=== PATIENT | female | born 1965 | race Caucasian/White ===

== ENCOUNTER 2022-07-16 12:28 | Emergency (ER) | payer SELFPAY ==
[2022-07-16 12:29] VITALS: BP 128/82; PULSE 98; RESP 18; TEMP 36.7; O2SAT 96; BMI 30.4
--- NOTE | 2022-07-16 12:36 | XRR_ITS ---
PROCEDURE INFORMATION: Exam: XR Left Humerus Exam date and time: 07/16/2022 12:59 PM Age: 57 years old Clinical indication: Injury or trauma; Fall; Blunt trauma (contusions or hematomas); Arm, upper; Left; Additional info: Fall/left arm pain TECHNIQUE: Imaging protocol: Radiologic exam of the Left humerus. Views: 2 or more views. COMPARISON: No relevant prior studies available. FINDINGS: Bones/joints: There is an oblique fracture near the mid shaft of the left humerus. There is anterior tilting and about 6 mm of medial displacement of the distal fragment. Soft tissues: Normal. XR/[place] [id number] IMPRESSION: Fracture near the mid shaft of the humerus.
--- NOTE | 2022-07-16 13:38 | ED_ITS ---
Documented by User: JADE Sandhu-Fernando 07/16/22 18:27 HPI - Extremity Problem General: Chief complaint: Extremity Injury, Upper Stated complaint: Left arm injury from fall Time Seen by Provider: 07/16/22 12:37 History of Present Illness: Patient is in today for left arm pain. She reports that they are renovating a house and yesterday she fell slipping on a tarp and fell into some furniture onto her left arm. She reports has been very painful since that time. She is new to the area and does not have a PCP. She went to a clinic today and they advised her to come to the ER. She reports if she is sitting still her pain is a 6 out of 10 but is much worse if she tries to move the arm. She reports good movement of her fingers and hand from the elbow down she can also shrug her shoulder but she reports that if she moves her arm away from her body it feels like it is dangling. Associated symptoms: Deny fever(s) Review of Systems Const: Denies: fever(s) or chills Musc: Reports: extremity pain (Left upper arm pain) [facility] PFSH: Social History Smoking and tobacco status: never smoked Physical Exam Const: COMMON NORMALS: no acute distress (Patient sitting calm but in obvious pain), patient oriented x3 and alert Resp: COMMON NORMALS: normal respiratory effort and No use of accessory muscles Extremity: NARRATIVE EXTREMITY EXAM: Patient has arm in a sling to her side. CSM within normal limits. Patient is able to move wrist and wiggle fingers with good strength. Radial and ulnar pul ses intact and strong. She is able to shrug her shoulders. Pain intensifies if she tries to move the arm away from her body. Neuro: COMMON NORMALS: patient oriented x3 SENSORIUM/ORIENTATION: Yes alert Course Reevaluation(s): Reevaluation #1: 1415?patient reports excellent affect after pain medication and nausea medication. Reevaluation #2: 1640?patient reports some pain in her arm again after going to CT scan she is also feeling very nauseated again. Hydrocodone and Zofran ordered Consultations: Consultation #1: Spoke with Dr. Blankenship?he recommends CT of the humerus without contrast. He would like to see the patient in office on Wednesday. He recommends a coaptation splint Vital Signs: Vital signs: Vital Signs Temperature 98.1 F 07/16/22 12:29 Pulse Rate 98 07/16/22 12:29 Respiratory Rate 18 07/16/22 17:55 Blood Pressure 128/82 07/16/22 12:29 Pulse Oximetry 96 07/16/22 12:29 Oxygen Delivery Me thod 07/16/22 12:29 MDM - Extremity (Nontraumatic) Medical Decision Making Patient is in today for left upper arm pain after falling and hitting her arm on furniture. This happened yesterday. She was seen at a clinic today and referred to the emergency department. X-ray shows a fracture near the midshaft of the humerus on the left side. Paged Dr. Blankenship who is on-call for orthopedics today. Spoke with Dr. Blankenship who recommends CT noncontrast of the humerus. Follow-up with him in office on Wednesday. Placed patient in a coaptation splint. Splint in good position. CSM within normal limits post splint. Patient was given fentanyl one-time dose during splinting procedure for acute pain. I consulted with Dr. Brewer to provide patient pain control on discharge. Percocet 5/325 1 tab every 4-6 hours as needed pain #30 no refills was given hard prescription per Dr. Brewer. Advised patient of follow-up with Dr. Blankenship. Advised her of conservative treatment at home. All questions answered to satisfaction. Patient is stable for discharge. Advised her to return to ER as needed for any new or worsening symptoms Lab Data Radiology Impressions Humerus X-Ray 07/16/22 12:36 IMPRESSION: Fracture near the mid shaft of the humerus. Humerus CT 07/16/22 15:12 IMPRESSION: Comminuted left humeral diaphyseal fracture. See discussion above. Discharge Plan Discharge Patient Disposition: Home Clinical Impression: Fracture of humerus Condition: Stable Prescriptions: No Action atorvastatin 10 mg tablet 10 mg PO DAILY oxycodone-acetaminophen [Percocet] 5-325 mg tablet 1 tab PO Q6H PRN (Reason: pain) 7 Days Qty: 28 0RF (DME) hummeral fracture brace See Rx Instructions .Route .MEDSUPPLY Qty: 1 0RF Rx Instructions: As directed meloxicam 15 mg tablet 15 mg PO DAILY Qty: 30 0RF Discharge Orders: Discharge ED (Routine); Ordered 07/16/22 Ordered By: Nati Hassan Discharge Diet: Usual diet Discharge Activity: Limit activity as instructed Patient Instructions: Fractures - Humerus, Splint Care (ED), Opioid Safety, Pain Management Activity Restrictions/Additional Instructions: Keep splint in place. Utilize pain medication as prescribed. Do not drive after taking pain medication. Follow-up with Dr. Blankenship on Wednesday. Return to the ER as needed for new or worsening symptoms. Coding Level of Care Code ED Telephone Service Representative for [facility] Fwd Exam Expanded Problem Focused Documented by User: Latrell Brewer MD 07/25/22 18:40 HPI - Extremity Problem General: Chief complaint: Extremity Injury, Upper Stated complaint: Left arm injury from fall Time Seen by Provider: 07/16/22 12:37 PFSH ED PFSH: Social History Smoking and tobacco status: never smoked Course Vital Signs: Vital signs: Vital Signs Temperature 98.1 F 07/16/22 12:29 Pulse Rate 98 07/16/22 12:29 Respiratory Rate 18 07/16/22 17:55 Blood Pressure 128/82 07/16/22 12:29 Pulse Oximetry 96 07/16/22 12:29 Oxygen Delivery Me thod 07/16/22 12:29 MDM - Extremity (Nontraumatic) Medical Decision Making Patient is in today for left upper arm pain after falling and hitting her arm on furniture. This happened yesterday. She was seen at a clinic today and referred to the emergency department. X-ray shows a fracture near the midshaft of the humerus on the left side. Paged Dr. Blankenship who is on-call for orthopedics today. Spoke with Dr. Blankenship who recommends CT noncontrast of the humerus. Follow-up with him in office on Wednesday. Placed patient in a coaptation splint. Splint in good position. CSM within normal limits post splint. Patient was given fentanyl one-time dose during splinting procedure for acute pain. I consu lted with Dr. Brewer to provide patient pain control on discharge. Percocet 5/325 1 tab every 4-6 hours as needed pain #30 no refills was given hard prescription per Dr. Brewer. Advised patient of follow-up with Dr. Blankenship. Advised her of conservative treatment at home. All questions answered to satisfaction. Patient is stable for discharge. Advised her to return to ER as needed for any new or worsening symptoms I discussed this patient with Nati Hassan NP. I reviewed imaging. I have reviewed documentation. Latrell Brewer MD Emergency Medicine Lab Data Radiology Impressions Humerus X-Ray 07/16/22 12:36 IMPRESSION: Fracture near the mid shaft of the humerus. Humerus CT 07/16/22 15:12 IMPRESSION: Comminuted left humeral diaphyseal fracture. See discussion above. Discharge Plan Discharge Patient Disposition: Home Clinical Impression: Fracture of humerus Condition: Stable Prescriptions: No Action atorvastatin 10 mg tablet 10 mg PO DAILY oxycodone-acetaminophen [Percocet] 5-325 mg tablet 1 tab PO Q6H PRN (Reason: pain) 7 Days Qty: 28 0RF (DME) hummeral fracture brace See Rx Instructions .Route .MEDSUPPLY Qty: 1 0RF Rx Instructions: As directed meloxicam 15 mg tablet 15 mg PO DAILY Qty: 30 0RF Discharge Orders: Discharge ED (Routine); Ordered 07/16/22 Ordered By: Nati Hassan Discharge Diet: Usual diet Discharge Activity: Limit activity as instructed Patient Instructions: Fractures - Humerus, Splint Care (ED), Opioid Safety, Pain Management Activity Restrictions/Additional Instructions: Keep splint in place. Utilize pain medication as prescribed. Do not drive after taking pain medication. Follow-up with Dr. Blankenship on Wednesday. Return to the ER as needed for new or worsening symptoms. Coding Level of Care Code ED Telephone Service Representative for [facility] Fwd Exam Expanded Problem Focused
[2022-07-16] MEDS: HYDROcodone-acetaminophen 5-325 mg Tablet 1 TAB PO ×2 (14:05→16:50)
[2022-07-16] MEDS: ondansetron 4 MG Tablet PO ×2 (14:05→16:50)
--- NOTE | 2022-07-16 15:12 | CTR_ITS ---
PROCEDURE INFORMATION: Exam: CT Left Upper Extremity Without Contrast, Shoulder Exam date and time: 07/16/2022 4:23 PM Age: 57 years old Clinical indication: Injury or trauma; Fall; Blunt trauma (contusions or hematomas); Arm, upper; Injury date: 07/15/2022; Patient HX: Patient slipped on tarp and fractured left humerus; Additional info: Fracture humerus, Dr. Blankenship request further evaluation with CT. TECHNIQUE: Imaging protocol: Computed tomography of the Left upper extremity without contrast. Exam focused on the shoulder. Radiation optimization: All CT scans at this facility use at least one of these dose optimization techniques: automated exposure control; mA and/or kV adjustment per patient size (includes targeted exams where dose is matched to clinical indication); or iterative reconstruction. COMPARISON: [place] [id number] 07/16/2022 12:59 PM RADIATION DOSE METRICS: Total DLP (mGy-cm): 870.62 FINDINGS: Bones/joints: Acute comminuted fracture of the proximal 3rd of the left humeral diaphysis with slight displacement and no significant angulation. Some angulation was noted on the radiographic exam same day. No other acute fracture dislocation is identified. No significant arthritic disease within the elbow and shoulder joint. Minimal lateral acromial downsloping is noted. No regional osseous destruction to suggest an underlying bony lesion/pathologic fracture. Soft tissues: Mild edema and small amount of soft tissue hemorrhage is noted around the fracture site. Otherwise no large discrete high-density soft tissue hematoma. No obvious soft tissue foreign bodies. CT/CT humerus LT wo con* [id number] IMPRESSION: Comminuted left humeral diaphyseal fracture. See discussion above.
[2022-07-16 17:55] VITALS: RESP 18
[2022-07-16] MEDS: fentaNYL 50 mcg/mL INJ 2mL XX (17:55)
--- NOTE | 2022-07-17 08:48 | DCPLANNER ---
Addendum entered by Catherine Morrissey 07/23/22 16:55: Patient had a follow up appointment scheduled for 07.21.[address] Blankenship at ortho - patient did attend appointment. Original Note: [employer] had message to schedule a follow up appointment for patient with ortho. [employer] sent patients information to the front office staff at ortho. Patients information will be printed and reviewed. Clinic will call patient with appointment information.
== END 2022-07-16 18:31 | disposition home or self-care (01) ==
PROVIDERS: Emergency Provider Nurse Practitioner Family
DX: S42.302A Unspecified fracture of shaft of humerus, left arm, initial encounter for closed fracture (principal); W01.190A Fall on same level from slipping, tripping and stumbling with subsequent striking against furniture, initial encounter
CPT/HCPCS: 29125; 73060; 73200; 99284; J3010; Q0162

== ENCOUNTER 2022-07-21 15:59 | Outpatient (CLI) | payer SELFPAY | END 2022-07-21 16:00 | disposition home or self-care (01) | LOC: SPT 15:59 | PROVIDERS: Visit Provider Student in an Organized Health Care Education/Training Program | DX: Z46.89 Encounter for fitting and adjustment of other specified devices (principal); S42.309D Unspecified fracture of shaft of humerus, unspecified arm, subsequent encounter for fracture with routine healing; X58.XXXD Exposure to other specified factors, subsequent encounter | CPT/HCPCS: 97760; L3980 ==

== ENCOUNTER → 2022-07-30 13:19 | Outpatient (BNVA) | payer SELFPAY | PROVIDERS: Visit Provider Student in an Organized Health Care Education/Training Program | DX: S42.352A Displaced comminuted fracture of shaft of humerus, left arm, initial encounter for closed fracture (principal); X58.XXXA Exposure to other specified factors, initial encounter | CPT/HCPCS: 73060 ==

== ENCOUNTER → 2022-08-27 13:35 | Outpatient (BNVA) | payer SELFPAY | PROVIDERS: Visit Provider Student in an Organized Health Care Education/Training Program | DX: S42.302A Unspecified fracture of shaft of humerus, left arm, initial encounter for closed fracture (principal); X58.XXXA Exposure to other specified factors, initial encounter | CPT/HCPCS: 73020; 73060 ==